=== PATIENT | female | born 1945 | race Caucasian/White ===

== ENCOUNTER 2021-10-18 11:26 | Emergency (ER) | payer MEDICARE ==
[2021-10-18 12:11] LABS: #Basophils 0.1 thou/uL (0.0-0.2); #Lymphocytes 1.9 thou/uL (1.20-3.40); #Monocytes 0.9 thou/uL (0.11-0.59); %Basophils 0.5 % (0.0-1.0); %Eosinophils 0.2 % (0.0-10.0); %Lymphocytes 12.9 % (21.0-51.0); %Monocytes 6.1 % (0.0-10.0); %Neutrophils 80.2 % (42.0-75.0); Hemoglobin 13.7 g/dL (12.0-16.0); Mean Corpuscular HGB CONC 32.3 g/dL (32.0-36.0); Mean Corpuscular Volume 96.1 fL (78.0-98.0); Mean Platelet Volume 7.3 fL (7.4-10.4); Platelet Count 332 thou/uL (130-400); RBC Distribution Width 13.8 % (11.5-14.5); Red Blood Cell (RBC) Count 4.41 mill/uL (4.20-5.40); White Blood Cell (WBC) Count 14.9 thou/uL (4.8-10.8)
[2021-10-18 12:23] LABS: ALT (SGPT) 11 U/L (8-55); AST (SGOT) 17 U/L (5-34); Albumin 4.3 g/dL (3.4-4.8); Alkaline Phosphatase 71 U/L (40-110); Anion Gap 19 mmol/L (10-20); BUN (Urea Nitrogen) 22 mg/dL (9.8-20.1); Bilirubin, Total 0.5 mg/dL (0.2-1.2); Calc. Creatinine Clearance 0 mL/min (70-130); Calcium 9.6 mg/dL (7.8-10.44); Carbon Dioxide 24 mmol/L (23-31); Chloride 101 mmol/L (98-107); Globulin 4.9 g/dL (2.4-3.5); Glucose 92 mg/dL (83-110); Potassium 3.8 mmol/L (3.5-5.1); Protein, Total 9.2 g/dL (5.8-8.1); Sodium 140 mmol/L (136-145)
[2021-10-18 12:24] LABS: Bilirubin Moderate (Negative); Blood, Urine Moderate (Negative); Clarity Cloudy (Clear); Glucose, Urine (Dipstick) Negative (Negative); Ketone, Urine > or equal to 80 mg/dL (Negative); Leukocyte Negative (Negative); Nitrite Negative (Negative); Protein, Urine (Dipstick) 100 mg/dL (Neg-Trace); Urobilinogen 0.2 mg/dL (Less than 2); pH, Urine 5.5 (5.0-9.0)
[2021-10-18 12:25] LABS: Specific Gravity, Urine 1.024 (1.002-1.036)
[2021-10-18 12:31] LABS: Bacteria/HPF 2+ HPF (None Seen); Mucous/LPF 2+ LPF (<2+); Squamous Epithelial 0-3 HPF (0-3); WBC/HPF 0-3 HPF (0-3)
[2021-10-18] MEDS ORDERED: Ondansetron PF 4 MG/2 ML Vial ONE (12:33)
[2021-10-18] MEDS ORDERED: cefTRIAXone\\ROCEPHIN 1 GM VIAL ONE (13:02)
[2021-10-18] MEDS ORDERED: Sodium Chloride 0.9% 100 ML ONE (13:02)
== END 2021-10-18 13:28 | disposition home or self-care (01) ==
LOC: BURERS 11:26
DX: R82.71 Bacteriuria (principal); R31.9 Hematuria, unspecified; Z87.891 Personal history of nicotine dependence; Z85.3 Personal history of malignant neoplasm of breast; Z79.899 Other long term (current) drug therapy
CPT/HCPCS: 80053; 81003; 81015; 83880; 84484; 85025; 87086; 96365; 96375; J0696; J2405; J3490

== ENCOUNTER 2022-07-31 11:22 | Emergency (ER) | payer MEDICARE ==
[2022-07-31 11:41] LABS: #Basophils 0.1 thou/uL (0.0-0.2); #Eosinphils 0.1 thou/uL (0.0-0.7); #Lymphocytes 2.4 thou/uL (1.20-3.40); #Monocytes 0.6 thou/uL (0.11-0.59); #Neutrophils 6.1 thou/uL (1.40-6.50); %Basophils 0.8 % (0.0-1.0); %Eosinophils 1.3 % (0.0-10.0); %Lymphocytes 25.5 % (21.0-51.0); %Monocytes 6.4 % (0.0-10.0); %Neutrophils 66.1 % (42.0-75.0); Hemoglobin 11.1 g/dL (12.0-16.0); Mean Corpuscular HGB CONC 31.8 g/dL (32.0-36.0); Mean Corpuscular Hemoglobin 30.5 pg (27.0-31.0); Mean Platelet Volume 7.2 fL (7.4-10.4); Platelet Count 312 10x3/uL (130-400); RBC Distribution Width 14.3 % (11.5-14.5); Red Blood Cell (RBC) Count 3.64 mill/uL (4.20-5.40); White Blood Cell (WBC) Count 9.2 10x3/uL (4.8-10.8)
[2022-07-31] MEDS ORDERED: Aspirin Chewable 81 MG TAB ONE (11:57)
[2022-07-31 11:59] LABS: ALT (SGPT) 20 U/L (8-55); AST (SGOT) 31 U/L (5-34); Albumin 4.3 g/dL (3.4-4.8); Alkaline Phosphatase 65 U/L (40-110); Anion Gap 15 mmol/L (10-20); BUN (Urea Nitrogen) 25 mg/dL (9.8-20.1); Bilirubin, Total 0.6 mg/dL (0.2-1.2); Calc. Creatinine Clearance 0 mL/min (70-130); Calcium 9.3 mg/dL (7.8-10.44); Carbon Dioxide 24 mmol/L (23-31); Chloride 107 mmol/L (98-107); Estimated GFR 48; Globulin 3.7 g/dL (2.4-3.5); Glucose 107 mg/dL (83-110); Potassium 3.9 mmol/L (3.5-5.1); Sodium 142 mmol/L (136-145)
[2022-07-31 15:02] LABS: CKMB 2.6 ng/mL (0-6.6)
[2022-07-31 15:06] LABS: Troponin I 0.757 ng/mL (< 0.028)
[2022-07-31] MEDS ORDERED: Nitroglycerin 2% Ointment 1 INCH/1 GM Packet ONE (15:37)
[2022-07-31] MEDS ORDERED: Acetaminophen 500 MG TAB ONE (15:37)
[2022-07-31 18:36] LABS: CKMB 2.5 ng/mL (0-6.6)
== END 2022-07-31 19:08 | disposition short-term general hospital (02) ==
LOC: BURERS 11:22
DX: I21.4 Non-ST elevation (NSTEMI) myocardial infarction (principal); Z87.891 Personal history of nicotine dependence; Z85.3 Personal history of malignant neoplasm of breast
CPT/HCPCS: 71045; 80053; 82553; 84484; 85025; 85379; 93005; 96372; J1650

== ENCOUNTER 2025-04-03 13:51 | Emergency (ER) | payer MEDICARE ==
[2025-04-03] MEDS ORDERED: diphenhydrAMINE 50 MG/ML VIAL ONE (14:07)
[2025-04-03] MEDS ORDERED: Metoclopramide HCl 10 MG (2 mL) VIAL ONE (14:07)
[2025-04-03 14:20] LABS: #Basophils 0.1 thou/uL (0.0-0.2); #Eosinophils 0.0 thou/uL (0.0-0.7); #Lymphocytes 1.5 thou/uL (1.20-3.40); #Monocytes 0.6 thou/uL (0.11-0.59); #Neutrophils 6.5 thou/uL (1.40-6.50); %Basophils 0.8 % (0.0-1.0); %Eosinophils 0.3 % (0.0-10.0); %Lymphocytes 17.1 % (21.0-51.0); %Monocytes 6.7 % (0.0-10.0); %Neutrophils 75.1 % (42.0-75.0); Hematocrit 35.3 % (36.0-47.0); Hemoglobin 12.5 g/dL (12.0-16.0); Mean Corpuscular Hemoglobin 30.6 pg (27.0-31.0); Mean Corpuscular Volume 86.7 fl (78.0-98.0); Platelet Count 236 10x3/uL (130-400); Red Blood Cell (RBC) Count 4.07 mill/uL (4.20-5.40); White Blood Cell (WBC) Count 8.6 10x3/uL (4.8-10.8)
[2025-04-03 14:26] LABS: INR-International Normal Ratio 1.1; Prothrombin Time 14.3 sec (12.0-14.7)
[2025-04-03 14:27] LABS: PTT 35.8 sec (22.9-36.1)
[2025-04-03 14:33] LABS: ALT (SGPT) 25 U/L (Less than 34); AST (SGOT) 44 U/L (11-34); Albumin 3.6 g/dL (3.1-4.5); Alkaline Phosphatase 75 U/L (40-110); Anion Gap 18 mmol/L (10-20); BUN (Urea Nitrogen) 21 mg/dL (9.8-20.1); Bilirubin, Total 0.8 mg/dL (0.3-1.2); Calc. Creatinine Clearance 0 mL/min (70-130); Calcium 9.1 mg/dL (7.8-10.44); Carbon Dioxide 22 mmol/L (23-31); Chloride 103 mmol/L (98-107); Globulin 4.5 g/dL (2.4-3.5); Glucose 94 mg/dL (83-110); Lipase 57 U/L (8-78); Potassium 4.0 mmol/L (3.5-5.1); Sodium 139 mmol/L (136-145)
[2025-04-03 14:35] LABS: Troponin I Less than 0.010 ng/mL (< 0.028)
[2025-04-03] MEDS ORDERED: ALPRAZolam 0.5 MG TAB ONE (14:39)
[2025-04-03 15:40] LABS: Glucose, Urine (Dipstick) Negative (Negative); Leukocyte Negative (Negative); Protein, Urine (Dipstick) Negative (Neg-Trace); Specific Gravity, Urine 1.010 (1.005-1.030)
[2025-04-03 15:46] LABS: Bacteria/HPF Rare-Few HPF (None Seen); CAUTI Indications for Culture Dysuria,urgency,freq; RBC/HPF 0-3 HPF (0-3); WBC/HPF None Seen HPF (0-3)
[2025-04-03 15:47] LABS: Urine Culture Reflex No No
[2025-04-03] MEDS ORDERED: Pantoprazole 40 MG VIAL ONE (15:51)
[2025-04-03] MEDS ORDERED: cefTRIAXone (ROCEPHIN) 2 GM VIAL ONE (15:51)
[2025-04-03] MEDS ORDERED: Iopamidol 370 76% 100 ML VIAL ONE (16:33)
== END 2025-04-03 16:10 | disposition home or self-care (01) ==
LOC: BURERS 13:51
DX: K29.70 Gastritis, unspecified, without bleeding (principal); J18.9 Pneumonia, unspecified organism; I10 Essential (primary) hypertension; I25.2 Old myocardial infarction; E78.5 Hyperlipidemia, unspecified; Z79.82 Long term (current) use of aspirin; Z87.891 Personal history of nicotine dependence; Z79.899 Other long term (current) drug therapy
CPT/HCPCS: 70450; 74177; 80053; 81001; 83690; 83880; 84484; 85025; 85610; 85730; 93005; 96361; 96374; 96375; J0696; J1200; J2470; J2765; Q9967